=== PATIENT | female | born 1995 | race Caucasian/White ===

== ENCOUNTER 2020-11-04 10:57 | Day surgery (SDC) | payer BC ==
[2020-11-04] MEDS ORDERED: Ringers Lactate 1,000 ML IV ONE (11:34)
[2020-11-04] MEDS ORDERED: CEFAZOLIN/SWI 1gm 1 GM/10 ML SYR ONE (11:35)
[2020-11-04 11:39] LABS: Specific Gravity 1.015 (1.005-1.030)
[2020-11-04] MEDS ORDERED: LIDOCAINE 1% MPF 5 ML VIAL ONE (11:58)
[2020-11-04] MEDS ORDERED: ROCURONIUM 50 MG/5 ML VIAL IV ONE (11:58)
[2020-11-04] MEDS ORDERED: propofoL 200 MG/20 ML VIAL IV ONE (11:58)
[2020-11-04] MEDS ORDERED: FENTANYL CITR 100 MCG/2 ML ONE (11:58)
[2020-11-04] MEDS ORDERED: MIDAZOLAM HCL 2 MG/2 ML INJ ONE (11:58)
[2020-11-04] MEDS ORDERED: BUPIVACA 0.5%/EPI 0.0005%/PF 30 ML VIAL ONE (12:17)
[2020-11-04] MEDS ORDERED: BUPIVACAINE 0.25% PF 30 ML VIAL ONE (12:17)
[2020-11-04] MEDS ORDERED: METHYLENE BLUE 0.5% 10 ML AMP ONE (12:18)
[2020-11-04] MEDS ORDERED: KETOROLAC 30 MG/ML INJ ONE (12:31)
[2020-11-04] MEDS ORDERED: dexAMETHasone 10 MG/ML VIAL ONE (12:31)
[2020-11-04] MEDS ORDERED: ONDANSETRON 4 MG/2 ML VIAL ONE ×2 (13:06→14:26)
[2020-11-04] MEDS ORDERED: SODIUM HYPOCHLORITE 0.25% 473 ML ONE (13:06)
--- NOTE | 2020-11-04 13:07 | P.OP ---
Preoperative diagnosis: Pilonidal Cyst with Sinus Postoperative diagnosis: Pilonidal Cyst with Sinus Primary procedure: Wide local excision of pilonidal cyst and sinus Anesthesia: GETA + Local Estimated blood loss: <5cc Specimen: Debridement Tissue Findings: 8 cm x 8 cm down to fascia overlying sacrum not to bone Transferred to: Recovery Room Condition: Good
[2020-11-04] MEDS ORDERED: MORPHINE 10 MG/ML VIAL ONE (13:15)
[2020-11-04 13:16] VITALS: O2SAT 100
[2020-11-04] MEDS ORDERED: MEPERIDINE HCL 25 MG/ML SYR ONE ×2 (13:43→13:52)
--- NOTE | 2020-11-04 13:51 | OP ---
Date of Procedure: 11/04/2020 Surgeon: Yfn Sharma MD, Preoperative Diagnosis: Pilonidal cyst with sinus. Postoperative Diagnosis: Pilonidal cyst with sinus. Procedure Performed: Wide local excision of pilonidal cyst and sinus tract. Anesthesia: General endotracheal plus local with 0.5% Marcaine with epinephrine. Estimated Fluid Loss: Less than 5 mL. Specimen: Debridement tissues. Findings: 8 cm x 8 cm pilonidal cyst and tract down extending to the fascia overlying the sacrococcy geal region, but not involving the ligaments or bone. Disposition: The patient was transferred to recovery room in good condition. Procedure In Detail: The patient was brought to the operating room, prepped and draped in the usual sterile fashion after adequate anesthesia achieved. I injected a punctate hole at the superior cleft with methylene blue and skin discoloration was noted to be approximately 6-7 cm away from this insertion site, superior to the insertion site at the superior teetee cleft, consistent with communic ation. After, I instilled approximately 5 cc of methylene blue. I removed this and placed a gauze o wang the top. I then incised the skin in an elliptical fashion for approximately 8 cm circumferential ly to the extension of the methylene blue tract through the subcutaneous tissues with a 15 blade. I used electrocautery to dissect down following the tract. At this point, I had to widen the incision as there was additional discolored tissue consistent with pilonidal cyst disease laterally extending the incision from 8 cm to 8 cm x 8 cm more circular type incision. At this point, I removed debridem ent tissue in a circumferential fashion and using a probe, I followed several tracts in fact sinuses from the original cyst cavity. They were short and non-communicated obviously with the rectum or any other structures. These were grasped and removed using electrocautery until all infected tissue was removed and no methylene blue-stained tissue remained. I then copiously irrigated the area. Hemost asis was achieved with electrocautery. I irrigated the area once again, dried it, and packed the wou nd with a 0.25% Dakin-soaked Kerlix and a sterile dressing placed over top. The patient tolerated th e procedure well without evidence of complication and was transferred to PACU in good condition. All counts were correct at the end of the case. TK/MODL Voice ID: [id number] Report ID: [id number]
[2020-11-04 14:18] VITALS: BP 137/69; TEMP 97.9
[2020-11-04] MEDS ORDERED: HYDROCODONE/APAP 7.5/325 MG TAB ONE (14:31)
== END 2020-11-04 14:51 | disposition home or self-care (01) ==
LOC: OR 10:57
PROVIDERS: ATTEND Surgery
PROC: 0JB90ZZ Excision of Buttock Subcutaneous Tissue and Fascia, Open Approach (ICD-10-PCS; principal; 2020-11-04 12:30)
DX: L05.91 Pilonidal cyst without abscess (principal); Z20.822 Contact with and (suspected) exposure to COVID-19
CPT/HCPCS: 81025; 88304; 11770; U0003; J2704; J2250; J3010; J1100; J2175 ×2; J0690; J7120; J2405 ×2